=== PATIENT | male | born 1990 | race Caucasian/White ===

== ENCOUNTER 2016-10-09 23:52 | Emergency (ER) | payer BC ==
[~2016-10-09] VITALS: Ht 180.3 cm; Wt 68.0 kg
[~2016-10-09 23:52] MED LIST: FAMO-63 PO; PRED-220 PO; TRIA15OI TP
[2016-10-10 00:04] VITALS: BP 163/105
--- NOTE | 2016-10-10 00:15 | PHYS DOC ---
Past Medical History Past Medical History: Other Additional Past Medical Histor: IV Drug Abuse Past Surgical History: No Surgical History Alcohol Use: None Drug Use: Marijuana, Methamphetamine Adult General Chief Complaint Chief Complaint: BLOODY STOOL HPI HPI Patient is a 25 year old male who presents with brought blood when he wiped on told him. He denies any abdominal pain, lightheadedness dizziness. He states is never happened before. He denies taking aspirins. He does use meth and injects it. Review of Systems Review of Systems Constitutional: Denies fever or chills [] Eyes: Denies change in visual acuity, redness, or eye pain [] HENT: Denies nasal congestion or sore throat [] Respiratory: Denies cough or shortness of breath [] Cardiovascular: No additional information not addressed in HPI [] GI: Denies abdominal pain, nausea, vomiting, or diarrhea [] : Denies dysuria or hematuria [] Musculoskeletal: Denies back pain or joint pain [] Integument: Denies rash or skin lesions [] Neurologic: Denies headache, focal weakness or sensory changes [] Endocrine: Denies polyuria or polydipsia [] Allergies Allergies Allergies Coded Allergies Type Severity Reaction Last Updated Verified No Known Drug Allergies 01/05/16 No Physical Exam Physical Exam Constitutional: Well developed, well nourished, no acute distress, non-toxic appearance. [] HENT: Normocephalic, atraumatic, bilateral external ears normal, oropharynx moist, no oral exudates, nose normal. [] Eyes: PERRLA, EOMI, conjunctiva normal, no discharge. [] Neck: Normal range of motion, no tenderness, supple, no stridor. [] Cardiovascular:Heart rate regular rhythm, no murmur [] Lungs & Thorax: Bilateral breath sounds clear to auscultation [] Abdomen/rectal exam: Bowel sounds normal, soft, no tenderness, no masses, no pulsatile masses. No external hemorrhoids appreciated, normal tone, no blood on exam Skin: Warm, dry, no erythema, no rash. [] Back: No tenderness, no CVA tenderness. [] Extremities: No tenderness, no cyanosis, no clubbing, ROM intact, no edema. [] Neurologic: Alert and oriented X 3, normal motor function, normal sensory function, no focal deficits noted. [] Psychologic: Affect normal, judgement normal, mood normal. [] Current Patient Data Vital Signs Vital Signs Date Time Temp Pulse Resp B/P (MAP) Pulse Ox O2 Delivery O2 Flow Rate FiO2 10/10/16 00:04 98.8 74 16 163/105 (124) 99 Room Air 98.8 Lab Values Laboratory Tests Test 10/10/16 00:40 White Blood Count 6.4 x10^3/uL (4.0-11.0) Red Blood Count 4.73 x10^6/uL (4.30-5.70) Hemoglobin 15.0 g/dL (13.0-17.5) Hematocrit 44.8 % (39.0-53.0) Mean Corpuscular Volume 95 fL (79-100) Mean Corpuscular Hemoglobin 32 pg (25-35) Mean Corpuscular Hemoglobin Concent 34 g/dL (31-37) Red Cell Distribution Width 13.1 % (11.5-14.5) Platelet Count 205 x10^3/uL (140-400) Neutrophils (%) (Auto) 51 % (31-73) Lymphocytes (%) (Auto) 39 % (24-48) Monocytes (%) (Auto) 8 % (0-9) Eosinophils (%) (Auto) 1 % (0-3) Basophils (%) (Auto) 1 % (0-3) Neutrophils # (Auto) 3.2 x10^3uL (1.8-7.7) Lymphocytes # (Auto) 2.5 x10^3/uL (1.0-4.8) Monocytes # (Auto) 0.5 x10^3/uL (0.0-1.1) Eosinophils # (Auto) 0.1 x10^3/uL (0.0-0.7) Basophils # (Auto) 0.0 x10^3/uL (0.0-0.2) Stool Occult Blood Negative (NEG) Sodium Level 143 mmol/L (136-145) Potassium Level 4.1 mmol/L (3.5-5.1) Chloride Level 104 mmol/L (98-107) Carbon Dioxide Level 31 mmol/L (21-32) Anion Gap 8 (6-14) Blood Urea Nitrogen 16 mg/dL (8-26) Creatinine 1.0 mg/dL (0.7-1.3) Estimated GFR (Cockcroft-Gault) 91.8 BUN/Creatinine Ratio 16 (6-20) Glucose Level 105 mg/dL (70-99) H Calcium Level 8.8 mg/dL (8.5-10.1) Total Bilirubin 1.2 mg/dL (0.2-1.0) H Aspartate Amino Transferase (AST) 30 U/L (15-37) Alanine Aminotransferase (ALT) 32 U/L (16-63) Alkaline Phosphatase 64 U/L (46-116) Total Protein 7.0 g/dL (6.4-8.2) Albumin 4.2 g/dL (3.4-5.0) Albumin/Globulin Ratio 1.5 (1.0-1.7) Laboratory Tests 10/10/16 00:40 Laboratory Tests 10/10/16 00:40 EKG EKG [] Radiology/Procedures Radiology/Procedures [] Impressions: Rectal bleeding Course & Med Decision Making Course & Med Decision Making Pertinent Labs and Imaging studies reviewed. (See chart for details) Hemoccult was negative. And did not see any blood on my exam. His labs and vitals are within normal limits. I suspect he has an internal hemorrhoid that could be bleeding. He will need to follow-up with GI if this continues. Return precautions given his agreeable plan and is being discharged in stable condition this time. Dragon Disclaimer Dragon Disclaimer This electronic medical record was generated, in whole or in part, using a voice recognition dictation system. Departure Departure Impression: Primary Impression: Rectal bleeding Disposition: 01 HOME, SELF-CARE Condition: STABLE Referrals: NO PCP (PCP) JAMESON KHALIL MD Patient Instructions: Rectal Bleeding Additional Instructions: Your blood work and rectal exam did not show any acute abnormality's. We did not see any blood in your stool. You might have an internal hemorrhoid that is bleeding. He will need to follow-up with GI doctor at this returns or continues. Return ER if he develops severe bleeding, lightheadedness dizziness or other concerns. BELLA JENKINS MD Oct 10, 2016 00:15
[2016-10-10 00:57] LABS: BASO % 1 % (0-3); EOS % 1 % (0-3); HEMATOCRIT 44.8 % (39.0-53.0); LYMPH # 2.5 x10^3/uL (1.0-4.8); LYMPH % 39 % (24-48); MEAN CORPUSCULAR HEMOGLOBIN 32 pg (25-35); MEAN CORPUSCULAR HGB CONC 34 g/dL (31-37); MEAN CORPUSCULAR VOLUME 95 fL (79-100); MONO % 8 % (0-9); NEUT % 51 % (31-73); PLATELET COUNT 205 x10^3/uL (140-400); RED BLOOD COUNT 4.73 x10^6/uL (4.30-5.70); RED CELL DISTRIBUTION WIDTH 13.1 % (11.5-14.5); WHITE BLOOD COUNT 6.4 x10^3/uL (4.0-11.0)
[2016-10-10 01:08] LABS: CALCIUM 8.8 mg/dL (8.5-10.1); GFR 91.8; POTASSIUM 4.1 mmol/L (3.5-5.1)
[2016-10-10 01:11] LABS: NEG OBC FOB NEG; POS OBC FOB POS
[2016-10-10 01:15] LABS: ALBUMIN 4.2 g/dL (3.4-5.0); ALBUMIN/GLOBULIN RATIO 1.5 (1.0-1.7); TOTAL BILIRUBIN 1.2 mg/dL (0.2-1.0)
== END 2016-10-10 02:05 | disposition home or self-care (01) ==
LOC: ER 23:52
DX: K62.5 Hemorrhage of anus and rectum (principal); F15.10 Other stimulant abuse, uncomplicated; F12.10 Cannabis abuse, uncomplicated
CPT/HCPCS: 36415; 80053; 82274; 85027; 99284